=== PATIENT | female | born 1995 | race Caucasian/White ===

== ENCOUNTER 2016-12-01 02:15 | Emergency (ER) | payer OTHER, MEDICAID ==
[2016-12-01 02:25] VITALS: BP 108/59; BMI 25.2
[2016-12-01 02:33] LABS: BILIRUBIN,URINE NEGATIVE (NEGATIVE); BLOOD/HEMOGLOBIN,URINE NEGATIVE (NEGATIVE); GLUCOSE, URINE NEGATIVE (NEGATIVE); KETONES,URINE 1+ (NEGATIVE); LEUKOCYTE ESTERASE ,URINE 2+ (NEGATIVE); NITRITES,URINE NEGATIVE (NEGATIVE); PROTEIN,URINE NEGATIVE (NEGATIVE); UROBILINOGEN,URINE NORMAL (NORMAL)
[2016-12-01 02:42] LABS: APPEARANCE,URINE CLOUDY (CLEAR); BACTERIA,URINE 2+ /HPF (NEGATIVE); COLOR,URINE YELLOW (YELLOW); MUCUS,URINE MANY /HPF (NEGATIVE); RBC,URINE NONE SEEN /HPF (NEGATIVE); SQUAMOUS EPITHELIAL CELL,UR FEW /HPF (NEGATIVE)
[2016-12-01] MEDS ORDERED: MACROBID CAP 100 MG EXT REL PO ONE ×2 (03:20→03:23)
--- NOTE | 2016-12-01 03:20 | DR.GENAD ---
HPI - PCP Primary Care Physician: nfd - Complaint/Symptoms Chief Complaint:: right flank pain - Nurses notes reviewed Nurses Notes Review: Yes - Source History Provided: Patient - Mode of Arrival Mode of Arrival: Ambulatory - Timing Onset of Chief Complaint: 11/29/16 - Duration Duration: Constant How lon Duration: Days - Location Location: bladder - Severity Severity: Mild - Modifying Factors Worsens:: urination - Associated Signs and Symptoms Associated Signs and Symptoms: none - Other History Other History: hx uti PMH - PMH Past Medical History: No Past Surgical History: No - Family History History of Family Medical Conditions: No Family Medical History: Diabetes Mellitus - Social History Does patient currently use any type of tobacco product: No Have you used tobacco products in the last 12 months: No Type of Tobacco Use: Cigarettes Does any household member use tobacco: No Alcohol Use: None Do you use any recreational Drugs:: No Lives With: Alone Lives Where: Home - infectious screening In the last 2 months have you had wt loss of >10#?: NO Have you had fever, night sweats or hemotysis?: No Have you traveled outside the country in the last 6 months?: No Isolation: Standard ROS - Review of Systems Constitutional: No Symptoms Reported Eyes: No Symptoms Reported ENTM: No Symptoms Reported Respiratoy: No Symptoms Reported Cardiovascular: No Symptoms Reported Gastrointestinal/Abdominal: No Symptoms Reported Genitourinary: Dysuria Neurological: No Symptoms Reported Musculoskeletal: No Symptoms Reported Integumentary: No Symptoms Reported Hematologic/Lymphatic: No Symptoms Reported Endocrine: No Symptoms Reported Psychiatric: No Symptoms Reported PE - Vital Signs Vitals: Temperature 98.1 F Pulse Rate 86 Respiratory Rate 16 Blood Pressure 108/59 O2 Sat by Pulse Oximetry 100 - General Limitations: No Limitations General Appearance: Alert, In No Apparent Distress - Head Head Exam: Normal Inspection - Eyes Eye exam: Normal Appearance, EOMI. negative: Scleral Icterus, Conjunctival Injection - ENT ENT Exam: Normal Exam External Ear Exam: Normal External Inspection Nose Exam: Normal Nose Exam Mouth Exam: Normal Inspection Throat Exam: Normal Inspection - Neck Neck Exam: Normal Inspection, Full ROM, Trachea Midline - Respiratory Respiratory Exam: Normal Lung Sounds Bilat. negative: Accessory Muscle Use, Respiratory Distress Respiratory Exam: Bilateral Clear to Auscultation - Cardiovascular Cardiovascular Exam: Regular Rate - Abdominal Exam Abdominal Exam: Normal Inspection, Normal Bowel Sounds, Soft - Back Back Exam: Normal Inspection - Neurologic Neurological Exam: Alert, Oriented X3, CN II-XII Intact - Psychiatric Psychiatric Exam: Normal Affect - Skin Skin Exam: Intact, Normal Color ROR - Labs Reviewed Laboratory: Specimen Type Clean catch urine 12/01/16 02:26 Urine Color Yellow (YELLOW) 12/01/16 02:26 Urine Appearance Cloudy (CLEAR) 12/01/16 02:26 Urine pH 5.0 (5.0 - 8.0) 12/01/16 02:26 Ur Specific [place] 1.030 (1.000-1.030) 12/01/16 02:26 Urine Protein Negative (NEGATIVE) 12/01/16 02:26 Urine Glucose (UA) Negative (NEGATIVE) 12/01/16 02:26 Urine Ketones 1+ (NEGATIVE) 12/01/16 02:26 Urine Occult Blood Negative (NEGATIVE) 12/01/16 02:26 Urine Nitrite Negative (NEGATIVE) 12/01/16 02:26 Urine Bilirubin Negative (NEGATIVE) 12/01/16 02:26 Urine Urobilinogen Normal (NORMAL) 12/01/16 02:26 Ur Leukocyte Esterase 2+ (NEGATIVE) 12/01/16 02:26 Urine RBC None seen /HPF (NEGATIVE) 12/01/16 02:26 Urine WBC 10-12 /HPF (NEGATIVE) 12/01/16 02:26 Ur Squamous Epith Cells Few /HPF (NEGATIVE) 12/01/16 02:26 Urine Bacteria 2+ /HPF (NEGATIVE) 12/01/16 02:26 Urine Mucus Many /HPF (NEGATIVE) 12/01/16 02:26 Ur Culture Indicated? Yes/culture set up 12/01/16 02:26 - Diagnosis Discharge Problem: UTI (urinary tract infection) Qualifiers: Urinary tract infection type: acute cystitis Hematuria presence: without hematuria Qualified Code(s): N30.00 - Acute cystitis without hematuria - Discharge Plan Condition: Stable Prescriptions: Nitrofurantoin Macrocrystal [Macrodantin] 100 mg PO BID #20 capsule - Follow ups/Referrals Follow ups/Referrals: NFD,None [Primary Care Provider] - 3 days - Instructions
== END 2016-12-01 03:28 | disposition home or self-care (01) ==
LOC: ER 02:15
DX: R10.84 Generalized abdominal pain (principal); N30.00 Acute cystitis without hematuria
CPT/HCPCS: 81001; 87086; 99283; 99284

== ENCOUNTER 2017-04-04 06:12 | Emergency (ER) | payer OTHER ==
[2017-04-04 06:18] VITALS: BP 134/95; BMI 26.1
--- NOTE | 2017-04-04 06:47 | DR.GENAD ---
HPI - PCP Primary Care Physician: gilda cuellar - Complaint/Symptoms Chief Complaint Doctors Comments: patient admitsto sore throat for one day. She has a croupy cough. She has a history of asthma for two years. Chief Complaint:: patient stated she has asthma and her throat has felt tight and hard to swollow for 3 days but got worse last night - Source History Provided: Patient - Mode of Arrival Mode of Arrival: Ambulatory - Timing Onset of Chief Complaint: 04/01/17 PMH - PMH Past Medical History: Yes Past Medical History: Asthma Past Surgical History: Yes Surgical History: - Family History History of Family Medical Conditions: Yes Family Medical History: Diabetes Mellitus - Social History Does patient currently use any type of tobacco product: No Have you used tobacco products in the last 12 months: No Type of Tobacco Use: None Does any household member use tobacco: No Alcohol Use: None Do you use any recreational Drugs:: No Lives With: Family Lives Where: Home - infectious screening In the last 2 months have you had wt loss of >10#?: NO Have you had fever, night sweats or hemotysis?: No Have you traveled outside the country in the last 6 months?: No Isolation: Standard ROS - Review of Systems Eyes: No Symptoms Reported ENTM: No Symptoms Reported Respiratoy: No Symptoms Reported Cardiovascular: No Symptoms Reported Gastrointestinal/Abdominal: No Symptoms Reported Genitourinary: No Symptoms Reported Neurological: No Symptoms Reported Musculoskeletal: No Symptoms Reported Integumentary: No Symptoms Reported Hematologic/Lymphatic: No Symptoms Reported Endocrine: No Symptoms Reported Psychiatric: No Symptoms Reported All Other Systems: Reviewed and Negative PE - Vital Signs Vitals: Temperature 98.0 F Pulse Rate 102 Respiratory Rate 18 Blood Pressure 134/95 O2 Sat by Pulse Oximetry 97 - General Limitations: No Limitations General Appearance: Alert, In No Apparent Distress - Head Head Exam: Normal Inspection, Atraumatic - Eyes Eye exam: Normal Appearance, PERRL, EOMI - ENT ENT Exam: Normal Exam, Normal Oropharynx External Ear Exam: Normal External Inspection TM/Canal Exam: Bilateral Normal Nose Exam: Normal Nose Exam Mouth Exam: Normal Inspection Throat Exam: Normal Inspection - Neck Neck Exam: Normal Inspection, Full ROM - Chest Chest Inspection: Normal Inspection - Respiratory Respiratory Exam: Normal Lung Sounds Bilat Respiratory Exam: Bilateral Clear to Auscultation - Cardiovascular Cardiovascular Exam: Regular Rate, Normal Rhythm - Extremities Extremities Exam: Normal Inspection, Full ROM - Back Back Exam: Normal Inspection, Full ROM - Neurologic Neurological Exam: Alert, Oriented X3 - Psychiatric Psychiatric Exam: Normal Affect, Normal Mood - Skin Skin Exam: Warm, Dry, Intact Course - Reevaluation 1st: Unchanged - Education/Counseling Educated On: Treatment, Diagnosis, Prognosis, Needs for Follow Up ROR - Labs Reviewed Laboratory Results Reviewed?: Yes (strep negative) Laboratory: Streptococcus Screen Negative (NEGATIVE) 04/04/17 06:53 - Diagnosis Discharge Problem: Upper respiratory infection Qualifiers: URI type: unspecified viral URI Qualified Code(s): J06.9 - Acute upper respiratory infection, unspecified; B97.89 - Other viral agents as the cause of diseases classified elsewhere; B97.89 - Other viral agents as the cause of diseases classified elsewhere - Discharge Plan Condition: Stable - Follow ups/Referrals Follow ups/Referrals: NFD,None [Primary Care Provider] - 3 days - Instructions
== END 2017-04-04 07:40 | disposition home or self-care (01) ==
LOC: ER 06:12
DX: J06.9 Acute upper respiratory infection, unspecified (principal); B97.89 Other viral agents as the cause of diseases classified elsewhere
CPT/HCPCS: 87070; 87880; 99282

== ENCOUNTER 2023-09-12 06:29 | Inpatient (IN) ==
[2023-09-12] MEDS: LR 1,000 ML IV 1,000 ML IV ONE (06:34)
[2023-09-12] MEDS: NOZIN NASAL SANITIZER TP ONE (06:34)
[2023-09-12] MEDS: ANCEF VIAL 1 GRAM IVP ONE (06:38)
[2023-09-12] MEDS ORDERED: D5 1/2 NS 1,000 ML 1,000 ML IV SCH (06:38)
[2023-09-12] MEDS: ANCEF VIAL 1 GRAM ONE (07:09)
[2023-09-12] MEDS: NS 100 ML IV 100 ML ONE (07:09)
[2023-09-12] MEDS: ZOFRAN INJ 4 MG VIAL ONE (07:17)
[2023-09-12] MEDS: XYLOCAINE 2 % (PLAIN) ONE (07:17)
[2023-09-12] MEDS: DILAUDID INJ ONE (07:17)
[2023-09-12] MEDS: VERSED ONE ×2 (07:17→08:32)
[2023-09-12] MEDS: EPHEDRINE SULFATE INJ ONE (07:32)
[2023-09-12] MEDS: PITOCIN ONE ×2 (07:54→08:40)
[2023-09-12] MEDS: BENADRYL INJ 50 MG VIAL ONE (08:34)
[2023-09-12] MEDS: D5 1/2 NS 1,000 ML 1,000 ML IV ONE (08:40)
[2023-09-12] MEDS ORDERED: ZOFRAN INJ 4 MG VIAL IVP PRN ×2 (08:56→09:24)
[2023-09-12] MEDS ORDERED: BARHEMSYS INJ IVP PRN (08:56)
[2023-09-12] MEDS ORDERED: BENADRYL INJ 50 MG VIAL IVP PRN (08:56)
[2023-09-12] MEDS ORDERED: REGLAN INJ 10 MG VIAL IVP PRN ×2 (08:56→09:24)
[2023-09-12] MEDS ORDERED: NARCAN INJ IVP PRN (09:24)
[2023-09-12] MEDS ORDERED: D5 1/2 NS 1,000 ML 1,000 ML with PITOCIN 20 UNITS IV SCH (09:24)
[2023-09-12] MEDS: BENADRYL INJ 50 MG VIAL IVP PRN (10:04)
[2023-09-12] MEDS: PRENATAL PLUS PO SCH (10:04)
[2023-09-12] MEDS: ADACEL or BOOSTRIX TDaP VACCINE IM ONE (11:12)
[2023-09-12] MEDS ORDERED: TYLENOL 325 MG TAB PO PRN (11:21)
[2023-09-12] MEDS: TORADOL 30 MG VIAL IVP PRN (11:35)
[2023-09-12] MEDS: PERCOCET TAB 5/325 MG PO PRN (15:58)
[2023-09-12] MEDS: NORCO 5/325 MG TAB PO PRN (20:22)
[2023-09-13] MEDS: MYLICON TAB 80 MG CHEW PO PRN (04:14)
[2023-09-13 06:30] LABS: HEMATOCRIT 23.9 % (36.0-47.0); HEMOGLOBIN 8.2 g/dL (12.0-16.0)
[2023-09-13] MEDS: COLACE CAP 100 MG PO SCH (08:27)
[2023-09-13] MEDS: MOTRIN TAB 800 MG PO PRN (08:28)
[2023-09-13] MEDS: PERCOCET TAB 5/325 MG PO PRN (11:22)
[2023-09-13] MEDS: BACTROBAN TOPICAL OINT TOP SCH (14:10)
[2023-09-13] MEDS: FERROUS GLUCONATE PO SCH (16:53)
[2023-09-13 20:04] VITALS: RESP 18
[2023-09-14 08:23] VITALS: BP 124/69; PULSE 116; TEMP 98.1; O2SAT 99
== END 2023-09-14 10:20 | disposition home or self-care (01) | DRG 788 ==
LOC: LD 06:29 → MED/SURG 09:52
PROVIDERS: ADMIT Specialist; ATTEND Specialist
DX: O34.211 Maternal care for low transverse scar from previous cesarean delivery; Z3A.39 39 weeks gestation of pregnancy; Z37.0 Single live birth; N85.8 Other specified noninflammatory disorders of uterus

== ENCOUNTER 2024-09-30 22:12 | Inpatient (IN) ==
[2024-09-30 22:31] LABS: BILIRUBIN,URINE NEGATIVE (NEGATIVE); BLOOD/HEMOGLOBIN,URINE 1+ (NEGATIVE); GLUCOSE, URINE NEGATIVE (NEGATIVE); KETONES,URINE NEGATIVE (NEGATIVE); LEUKOCYTE ESTERASE ,URINE NEGATIVE (NEGATIVE); NITRITES,URINE NEGATIVE (NEGATIVE); PROTEIN,URINE 4+ (NEGATIVE); UROBILINOGEN,URINE NORMAL (NORMAL)
[2024-09-30 22:32] VITALS: BMI 36.0
[2024-09-30 22:32] LABS: APPEARANCE,URINE SLIGHTLY HAZY (CLEAR); COLOR,URINE DARK YELLOW (YELLOW)
[2024-09-30 22:36] LABS: AMNISURE ROM TEST THERE IS A RUPTURE (NO RUPTURE)
[2024-09-30 22:37] LABS: BACTERIA,URINE TRACE /HPF (NEGATIVE); SQUAMOUS EPITHELIAL CELL,UR MODERATE /HPF (NEGATIVE)
[2024-09-30] MEDS ORDERED: ZOFRAN INJ 4 MG VIAL IVP PRN (23:21)
[2024-09-30] MEDS ORDERED: BENADRYL INJ 50 MG VIAL IVP PRN (23:21)
[2024-09-30] MEDS ORDERED: TORADOL 30 MG VIAL IVP PRN (23:21)
[2024-09-30] MEDS: D5 1/2 NS 1,000 ML 1,000 ML IV ONE (23:30)
[2024-09-30] MEDS: NS 100 ML IV 100 ML ONE (23:40)
[2024-09-30] MEDS: ANCEF VIAL 1 GRAM ONE (23:40)
[2024-10-01] MEDS ORDERED: ZOFRAN INJ 4 MG VIAL ONE (00:10)
[2024-10-01] MEDS ORDERED: PITOCIN ONE (00:10)
[2024-10-01] MEDS ORDERED: PEPCID 20 MG VIAL ONE (00:10)
[2024-10-01] MEDS ORDERED: BENADRYL INJ 50 MG VIAL ONE (00:10)
[2024-10-01] MEDS ORDERED: REGLAN INJ 10 MG VIAL ONE (00:10)
[2024-10-01] MEDS ORDERED: VERSED ONE (00:10)
[2024-10-01] MEDS ORDERED: EPHEDRINE SULFATE INJ ONE (00:10)
[2024-10-01 00:13] LABS: URIC ACID 6.3 mg/dL (2.6-6.0)
[2024-10-01] MEDS ORDERED: BENADRYL INJ 50 MG VIAL IVP PRN ×2 (00:36→02:04)
[2024-10-01] MEDS ORDERED: REGLAN INJ 10 MG VIAL IVP PRN ×2 (00:36→02:04)
[2024-10-01] MEDS ORDERED: ZOFRAN INJ 4 MG VIAL IVP PRN ×2 (00:36→02:04)
[2024-10-01] MEDS ORDERED: DILAUDID INJ IVP PRN (00:36)
[2024-10-01] MEDS ORDERED: BARHEMSYS INJ IVP PRN (00:36)
[2024-10-01] MEDS: NEO-SYNEPHRINE INJ ONE (02:45)
[2024-10-01] MEDS: D5 1/2 NS 1,000 ML 1,000 ML IV SCH (02:45)
[2024-10-01] MEDS: EPHEDRINE SULFATE INJ ONE (02:46)
[2024-10-01] MEDS: ANCEF VIAL 1 GRAM IVP ONE (02:46)
[2024-10-01] MEDS: OFIRMEV IV 1000 MG VIAL 0 MG/0 ML VIAL IV ONE (02:46)
[2024-10-01] MEDS: PRECEDEX INJ VIAL ONE (02:46)
[2024-10-01] MEDS: REGLAN INJ 10 MG VIAL ONE (02:46)
[2024-10-01] MEDS: BENADRYL INJ 50 MG VIAL ONE (02:47)
[2024-10-01] MEDS: ZOFRAN INJ 4 MG VIAL ONE (02:47)
[2024-10-01] MEDS: PITOCIN ONE (02:47)
[2024-10-01] MEDS: MARCAINE SPINAL ONE (02:47)
[2024-10-01] MEDS: LR 1,000 ML IV 1,000 ML IV ONE (02:47)
[2024-10-01] MEDS: BICITRA 30 ML PO ONE (02:47)
[2024-10-01] MEDS: DIPRIVAN VIAL 20 ML ONE (02:48)
[2024-10-01] MEDS: VERSED ONE (02:48)
[2024-10-01] MEDS: PEPCID 20 MG VIAL ONE (02:48)
[2024-10-01] MEDS: OFIRMEV IV 1000 MG VIAL 1,000 MG/100 ML VIAL IV ONE (02:48)
[2024-10-01] MEDS: TORADOL 30 MG VIAL IVP PRN (02:55)
[2024-10-01 04:46] LABS: MEAN PLATELET VOLUME 9.2 fL (7.4-11.0)
[2024-10-01 04:49] LABS: BASOPHILS % (AUTO) 0.3 % (0.2-1.0); EOSINOPHILS # (AUTO) 0.1 x10^3/uL (0.0-0.2); EOSINOPHILS % (AUTO) 0.9 % (0.9-2.9); HEMATOCRIT 27.2 % (36.0-47.0); LYMPHOCYTES # (AUTO) 1.2 X10^3/uL (1.3-2.9); LYMPHOCYTES % (AUTO) 13.5 % (21.0-51.0); MEAN CORPUSCULAR HEMOGLOBIN 23.1 pg (27.0-34.0); MEAN CORPUSCULAR HGB CONC 33.3 g/dL (33.0-35.0); MEAN CORPUSCULAR VOLUME 69.3 fL (80.0-100.0); MONOCYTES # (AUTO) 0.9 x10^3/uL (0.3-0.8); MONOCYTES % (AUTO) 9.2 % (0.0-13.0); NEUTROPHILS # (AUTO) 7.1 x10^3/uL (2.2-4.8); NEUTROPHILS % (AUTO) 76.1 % (42.0-75.0); PLATELET COUNT 188 X10^3/uL (150.0-450.0); RED BLOOD COUNT 3.92 X10^6/uL (3.5-5.4); WHITE BLOOD COUNT 9.3 X10^3/uL (3.6-10.0)
[2024-10-01 04:51] LABS: BLOOD UREA NITROGEN 11 mg/dL (7-18); CALCIUM 7.2 mg/dL (8.5-10.1); CARBON DIOXIDE 27.5 mmol/L (21-32); CHLORIDE 106 mmol/L (98-107); CREATININE 0.72 mg/dL (0.55-1.02); GLUCOSE 78 mg/dL (65-99); POTASSIUM 3.6 mmol/L (3.5-5.1); SODIUM 141 mmol/L (136-145); eGFR NON BLACK RACES > 60 (>60)
[2024-10-01 05:01] LABS: ANISOCYTOSIS SLIGHT; HYPOCHROMASIA 1+; MICROCYTOSIS 1+; OVALOCYTES SLIGHT; PLATELET MORPHOLOGY COMMENT NORMAL (NORMAL); POIKILOCYTOSIS SLIGHT
[2024-10-01] MEDS: OXYTOCIN 20 UNIT/1,000 ML-NS 20 UNIT/1,000 ML PLAST..BAG IV SCH (06:13)
[2024-10-01] MEDS: MYLICON TAB 80 MG CHEW PO PRN (06:13)
[2024-10-01] MEDS ORDERED: ZOLOFT ONE (08:09)
[2024-10-01] MEDS: PRENATAL PLUS PO SCH (08:15)
[2024-10-01] MEDS: ZOLOFT PO SCH (08:16)
[2024-10-01] MEDS: PERCOCET TAB 5/325 MG PO PRN ×2 (08:36→16:39)
[2024-10-01] MEDS: ADACEL or BOOSTRIX TDaP VACCINE IM ONE (08:39)
[2024-10-01] MEDS: BACTROBAN TOPICAL OINT TOP SCH (13:25)
[2024-10-01] MEDS: MOTRIN TAB 800 MG PO PRN (20:34)
[2024-10-01] MEDS: COLACE CAP 100 MG PO SCH (20:34)
[2024-10-02] MEDS ORDERED: [UNRECOGNIZED DRUG - OTHER] PO PRN (06:28)
[2024-10-02] MEDS ORDERED: ZOLOFT ONE (08:15)
[2024-10-02] MEDS: NORMODYNE TAB 200 MG PO SCH (10:24)
[2024-10-02 18:07] VITALS: O2SAT 97
[2024-10-03] MEDS ORDERED: ZOLOFT ONE (08:19)
[2024-10-03 10:47] VITALS: BP 154/92; PULSE 103; RESP 19; TEMP 97.6
== END 2024-10-03 12:00 | disposition home or self-care (01) | DRG 785 ==
LOC: ER 22:12 → LD 23:10 → MED/SURG 10-01 02:01
PROVIDERS: ADMIT Specialist; ATTEND Specialist